=== PATIENT | female | born 1965 | race Two or more races ===

== ENCOUNTER 2017-06-27 18:58 | Emergency (ER) | payer OTHER ==
[~2017-06-27] VITALS: Ht 165.1 cm; Wt 73.0 kg
[2017-06-27 19:44] LABS: BASOPHILS % 0.7 % (0.0-2.0); EOSINOPHILS % 3.1 % (0.0-5.0); HEMATOCRIT. 39.6 % (36.0-48.0); LYMPHOCYTES % 29.1 % (20.0-50.0); MEAN CORPUSCULAR HEMOGLOBIN 26.7 pg (28.0-32.0); MEAN CORPUSCULAR VOLUME 81.1 fL (81.0-99.0); MEAN PLATELET VOLUME 10.5 fl (7.4-10.4); MONOCYTES % 5.7 % (2.0-8.0); NEUTROPHILS % 61.4 % (40.0-76.0); PLATELET 117 x1000/uL (130-400); RED BLOOD CELL COUNT 4.88 mill/uL (4.2-5.4); RED CELL DISTRIBUTION WIDTH 14.2 % (11.6-14.6)
[2017-06-27 19:45] LABS: CHLORIDE 100 mEq/L (98-107)
[2017-06-27 19:49] LABS: CARBON DIOXIDE 26 mEq/L (21-32)
[2017-06-27 21:13] VITALS: BP 142/85
== END 2017-06-27 21:22 | disposition home or self-care (01) ==
LOC: ER 19:13
DX: I16.0 Hypertensive urgency (principal); M79.602 Pain in left arm; E11.9 Type 2 diabetes mellitus without complications
CPT/HCPCS: 36415; 80053; 85025; 93005; 99285; Z7610